=== PATIENT | female | born 1965 | race Caucasian/White ===

== ENCOUNTER 2016-12-08 07:56 | Emergency (ER) | payer BC, OTHER ==
[2016-12-08 08:15] VITALS: BP 137/70
--- NOTE | 2016-12-08 08:46 | UC ---
Complaint Female HPI - HPI Summary HPI Summary: "Here for UTI sx. Pt c/o urinary frequency, burn/pain, fever/chills and nausea starting mildly 2-3 d ago. Tmax 102. Taking advil/tylenol prn, last dose this morning at 0700. Denies taking Azo. : Has frequent UTIs. follows with MASON Durand. s/p urethral dilation to decrease feq of UTIs in 08/16. This is 1st UTI since then. Normally has microscopic blood with UTIs. Denies f/c. She is a nurse. Always takes probiotic with abx. Keflex usually works well for her. - History Of Current Complaint Chief Complaint: [facility]CGU Stated Complaint: URINARY COMPLAINT Time Seen by Provider: 12/08/16 08:17 Hx Last Menstrual Period: 10/24/14 - Allergies/Home Medications Allergies/Adverse Reactions: Allergies Allergy/AdvReac Type Severity Reaction Status Date / Time No Known Allergies Allergy Verified 12/08/16 08:07 Home Medications: Home Medications Acetaminophen TAB* [Tylenol TAB*] 650 mg PO Q4H PRN 12/08/16 [History Confirmed 12/08/16] PMH/Surg Hx/FS Hx/Imm Hx Previously Healthy: Yes Endocrine History: Diabetes GI/ History: Renal Disease - kidney cysts followed by Other GI/ History: no kidney stone hx - Surgical History Surgical History: Yes Surgery Procedure, Year, and Place: BARIATRIC SX--10/24/2012. CHOLECYSTECTOMY- 1990. APPY-1984. [facility] SX FOR INFERTILITY - Family History Known Family History: Positive: Other - no kidney stone hx - Social History Alcohol Use: None Substance Use Type: None Smoking Status (MU): Former Smoker - Immunization History Most Recent Influenza Vaccination: 2016 Most Recent Tetanus Shot: UTD Most Recent Pneumonia Vaccination: N/A Review of Systems Constitutional: Negative Skin: Negative Eyes: Negative ENT: Negative Respiratory: Negative Cardiovascular: Negative Gastrointestinal: Negative Genitourinary: Dysuria, Frequency, Urgency Motor: Negative Neurovascular: Negative Musculoskeletal: Negative Neurological: Negative Psychological: Negative All Other Systems Reviewed And Are Negative: Yes Physical Exam Triage Information Reviewed: Yes Appearance: Well-Appearing, No Pain Distress, Well-Nourished - very pleasant Vital Signs: Initial Vital Signs Temp 98.1 F 12/08/16 08:09 Pulse 66 12/08/16 08:09 Resp 18 07/09/17 08:09 BP 137/70 12/08/16 08:09 Pulse Ox 98 12/08/16 08:09 Vital Signs Reviewed: Yes Eye Exam: Normal ENT Exam: Normal ENT: Positive: Pharynx normal, TMs normal Dental Exam: Normal Neck exam: Normal Neck: Positive: Supple, Nontender, No Lymphadenopathy Respiratory Exam: Normal Respiratory: Positive: Lungs clear, Normal breath sounds, No respiratory distress, No accessory muscle use Cardiovascular Exam: Normal Cardiovascular: Positive: RRR, Other: - I/ murmur (pt reports known MVP) Abdomen Description: Positive: Soft, Other: - mild suprapubic tenderness, mild RLQ tenderenss (h/o appendectomy). Negative: CVA Tenderness (R), CVA Tenderness (L), Distended, Guarding, Peritoneal Signs, Pulsatile Mass Musculoskeletal Exam: Normal Neurological Exam: Normal Psychological Exam: Normal Skin Exam: Normal Complaint Female Dx - Course Course Of Treatment: keflex 500mgs tid x 7 days, probiotic - Differential Dx/Diagnosis Differential Diagnosis/HQI/PQRI: Ovarian Cyst, Renal Colic, Ureteral Stone, Urinary Tract Infection Provider Diagnoses: UTI Discharge - Discharge Plan Condition: Stable Disposition: HOME Prescriptions: Cephalexin CAP* [Keflex 500 CAP*] 500 mg PO TID #21 cap Patient Education Materials: Urinary Tract Infection in Women (ED) Referrals: Clay Mendoza NP [Primary Care Provider] - Gabriele Romero MD [Medical Doctor] - 3 Days Additional Instructions: Take a probiotic daily while on antibiotics. - Go to ER if symptoms worsen.
== END 2016-12-08 08:52 | disposition home or self-care (01) ==
LOC: UCCORT 07:56
DX: N39.0 Urinary tract infection, site not specified (principal); N28.1 Cyst of kidney, acquired; Z87.891 Personal history of nicotine dependence
CPT/HCPCS: 81003; 87077; 87086; 87186; 99212; G0463